=== PATIENT | female | born 1940 ===

== ENCOUNTER → 2020-05-29 09:32 | Outpatient (CLI) | payer OTHER | END | disposition home or self-care (01) | LOC: LAB 09:32 | PROVIDERS: ATTEND Internal Medicine Hematology & Oncology | DX: D50.8 Other iron deficiency anemias (principal); I10 Essential (primary) hypertension; D68.8 Other specified coagulation defects; D69.1 Qualitative platelet defects; C91.10 Chronic lymphocytic leukemia of B-cell type not having achieved remission; F31.11 Bipolar disorder, current episode manic without psychotic features, mild; E03.8 Other specified hypothyroidism ==

== ENCOUNTER → 2020-06-28 09:29 | Outpatient (CLI) | payer OTHER | END | disposition home or self-care (01) | LOC: LAB 09:29 | PROVIDERS: ATTEND Internal Medicine Hematology & Oncology | DX: D50.8 Other iron deficiency anemias (principal); R79.89 Other specified abnormal findings of blood chemistry; I10 Essential (primary) hypertension; R74.02 Elevation of levels of lactic acid dehydrogenase [LDH]; K76.89 Other specified diseases of liver; D51.8 Other vitamin B12 deficiency anemias; D51.1 Vitamin B12 deficiency anemia due to selective vitamin B12 malabsorption with proteinuria; D51.0 Vitamin B12 deficiency anemia due to intrinsic factor deficiency; C91.10 Chronic lymphocytic leukemia of B-cell type not having achieved remission; F31.11 Bipolar disorder, current episode manic without psychotic features, mild; E03.8 Other specified hypothyroidism; D51.3 Other dietary vitamin B12 deficiency anemia ==